=== PATIENT | male | born 1980 | race Caucasian/White ===

== ENCOUNTER → 2018-03-10 | Outpatient (CLI) | payer BC ==
--- NOTE | 2018-03-10 09:48 | US ---
EXAM DESCRIPTION: Liver: ULTRASOUND. CLINICAL HISTORY: ABN LIVER FUNCTION COMPARISON: None. TECHNIQUE: Transabdominal scannin-dimensional and Doppler modes. Note: Patient has large body habitus. FINDINGS: Gallbladder: normal size, shape, echogenicity; no intraluminal stones or sludge. No fluid around the gallbladder. No wall thickening. 2.4 mm. Non-tender with transducer pressure. Common bile duct: caliber 3.2 mm within normal limits. Liver: normal echogenicity; contour liver capsule smooth where seen. No fluid around the liver. Intrahepatic biliary ducts normal caliber. Doppler hepatopedal flow portal vein. xxx Long axis right lobe 18.3 cm. Pancreas: Pancreas mostly obscured by intestinal gas. Duct not seen. Right kidney: long axis measures 11.5 cm. Normal Echogenicity. Normal cortical thickness. No hydronephrosis. Abdominal aorta: Normal caliber from the proximal segment to the distal bifurcation. IMPRESSION: 1. Technically difficult study due to patient large body habitus. Hepatomegaly with fatty infiltration. Normal vascularity and ducts. Smooth capsule with no ascites. 2. Gallbladder and common bile duct negative. Pancreas mostly obscured by intestinal gas. Right kidney, abdominal aorta, and IVC are unremarkable. Electronically signed by: Albert Story MD 03/10/2018 9:47 AM ADMISSIONS CLERK
== END ==
LOC: US 08:27
PROVIDERS: ATTEND Family Medicine
DX: R94.5 Abnormal results of liver function studies (principal); R16.0 Hepatomegaly, not elsewhere classified

== ENCOUNTER → 2018-09-28 | Outpatient (CLI) | payer BC | LOC: GMAE 14:16 | PROVIDERS: ATTEND Family Medicine | DX: R53.82 Chronic fatigue, unspecified (principal) ==

== ENCOUNTER → 2019-05-23 | Outpatient (CLI) | payer BC | LOC: GMA 10:22 | PROVIDERS: ATTEND Family Medicine | DX: Z00.00 Encounter for general adult medical examination without abnormal findings (principal) ==

== ENCOUNTER → 2020-03-02 | Outpatient (CLI) | payer BC | LOC: GMALS 19:12 | PROVIDERS: ATTEND Nurse Practitioner Acute Care | DX: N39.0 Urinary tract infection, site not specified (principal) ==

== ENCOUNTER 2020-03-04 14:43 | Emergency (ER) | payer BC ==
[2020-03-04 14:56] VITALS: TEMP 97.2
--- NOTE | 2020-03-04 15:22 | ED.PDOC ---
History of Present Illness - General Chief Complaint: Diabetic Complaint Stated Complaint: high blood sugar Time Seen by Provider: 03/04/20 14:52 - History of Present Illness Initial Comments: PATIENT REPORTS THAT HE HAS HAD DIARRHEA FOR THE LAST 3 DAYS, HE HAD LAB DRAWN THIS MORNING THAT INDICATED HIS GLUCOSE WAS ELEVATED SO [facility] SENT HIM TO ER. HE HAS A HISTORY OF GLUCOSE INTOLERANCE IN THE PAST THAT RESPONDED TO DIET. HE HAS NOT HAD HIS GLUCOSE CHECKED IN A WHILE. HE DENIES RESPIRATORY SYMPTOMS BUT IS COMPLAINING OF POLYURIA AND POLYDYPSIA FOR THE LAST WEEK OR SO. Worsening Factors: nothing Review of Systems - Review of Systems Constitutional: States: no symptoms reported EENTM: States: no symptoms reported Respiratory: States: no symptoms reported Cardiology: States: no symptoms reported Gastrointestinal/Abdominal: States: see HPI Genitourinary: States: see HPI Musculoskeletal: States: no symptoms reported Skin: States: no symptoms reported Past Medical History (General) - Patient Medical History Hx Hypertension: Yes Surgical History: no surgical history - Activities of Daily Living Hospice Agency (if applicable):: None - Female History Patient is a Female of Child Bearing Age (10 -59 yrs old): No Family Medical History - Family History Mother Living Status: Still Living Physical Exam - Physical Exam General Appearance: Alert, Obese, Well Developed, Well Groomed, Well Hydrated, Well Nourished Eyes, Ears, Nose, Throat Exam: PERRL/EOMI, normal ENT inspection, TMs normal Neck: non-tender, full range of motion, supple, normal inspection Respiratory: chest non-tender, lungs clear, normal breath sounds, no respiratory distress Cardiovascular/Chest: normal peripheral pulses, regular rate, rhythm, no gallop Peripheral Pulses: No deficit Gastrointestinal/Abdominal: normal bowel sounds, non tender, soft, no organomegaly Extremity: normal range of motion, non-tender, normal inspection, no pedal edema 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 STATES "I DONT WANT THAT THING SHOVED UP MY NOSE." ALSO EXPLAINED TO HIM THAT A VIRAL INFECTION SUCH COVID COULD CAUSE A RISE IN HIS GLUCOSE. 03/04/20 16:02 Departure - Departure Clinical Impression: Type 2 diabetes mellitus Qualifiers: Diabetes mellitus petroleum terminal plant operator insulin use: without petroleum terminal plant operator use Diabetes mellitus complication status: without complication Qualified Code(s): E11.9 - Type 2 diabetes mellitus without complications Time of Disposition: 16:02 Disposition: Discharge to Home or Self Care Departure Forms: ED Discharge - Pt. Copy, Patient Portal Self Enrollment Instructions: DI for Diabetes Type 2, Type 2 Diabetes Referrals: PAULA WHITMAN MD [Primary Care Provider] - 1-2 Weeks Prescriptions: metFORMIN XR [Glucophage Xr] 500 mg PO DAILY #60 tab.[email or web address] Home Medications: Ambulatory Orders metFORMIN XR [Glucophage Xr] 500 mg PO DAILY #60 tab.[email or web address] 03/04/20 Additional Instructions: RECOMMEND THAT YOU GET A HOME GLUCOSE MONITOR AND LEARN TO TEST YOUR GLUCOSE. RECOMMEND THAT YOU CHECK IN TWICE DAILY, ONCE FASTING IN THE MORNING AND AND 2 HOURS AFTER EVENING MEAL. KEEP A LOG OF YOUR GLUCOSE READING. SEE YOUR DOCTOR WITH VIRTUAL VISIT IN 1 WEEK.
[2020-03-04] MEDS: SODIUM CHLORIDE 0.9% 1000ML 1,000 ML IVS ONE (15:26)
[2020-03-04] MEDS: INSULIN, REG.(HUMAN) 100 U/ML VIAL IV ONE (15:26)
[2020-03-04 16:28] VITALS: BP 147/82; O2SAT 98
== END 2020-03-04 16:25 | disposition home or self-care (01) ==
LOC: ER 14:43
DX: E11.9 Type 2 diabetes mellitus without complications (principal); R19.7 Diarrhea, unspecified; I10 Essential (primary) hypertension; Z79.84 Long term (current) use of oral hypoglycemic drugs

== ENCOUNTER → 2020-03-04 | Outpatient (CLI) | payer BC | LOC: LAB.O 11:51 | PROVIDERS: ATTEND Nurse Practitioner Acute Care | DX: A08.39 Other viral enteritis (principal); K57.30 Diverticulosis of large intestine without perforation or abscess without bleeding; K76.0 Fatty (change of) liver, not elsewhere classified; R16.2 Hepatomegaly with splenomegaly, not elsewhere classified; Q63.1 Lobulated, fused and horseshoe kidney; R73.09 Other abnormal glucose; R11.2 Nausea with vomiting, unspecified; R31.0 Gross hematuria ==

== ENCOUNTER → 2020-03-05 | Outpatient (CLI) | payer BC ==
--- NOTE | 2020-03-05 14:00 | CT ---
EXAM DESCRIPTION: Abdomen/Pelvis w/Contrast CLINICAL HISTORY: EPIGASTRIC PAIN COMPARISON: None. TECHNIQUE: Postcontrast CT images of the abdomen and pelvis are obtained using standard imaging protocol. Positive oral contrast is utilized. This exam was performed according to our departmental dose-optimization program, which includes automated exposure control, adjustment of the mA and/or kV according to patient size and/or use of iterative reconstruction technique . FINDINGS: Lower chest unremarkable. Liver is heterogeneous and decreased attenuation. Right lobe of the liver measures 22.1 cm. Spleen is enlarged measuring 19.4 x 17.3 cm. Pancreas and adrenal glands are unremarkable. Gallbladder is not well identified and may be surgically absent versus isointense to the liver. Abdominal vasculature is unremarkable. 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 No nephrolithiasis. No ureteral calcification or obstruction. Smaller 11 mm cortical cyst of the upper pole left kidney. Urinary bladder is contracted and not well evaluated. Prostate is unremarkable. The appendix is unremarkable. Stomach is contrast-filled and within normal limits. Air and fluid-filled dilated loops of mostly proximal to mid small bowel are seen. No transition level is seen. Mild to moderate scattered diverticuli of the colon primarily in the descending to sigmoid region. Moderate wall thickening and adjacent fat stranding involving the descending to sigmoid colon in the left lower quadrant over a length of 7 to 8 cm. No free intraperitoneal air or drainable fluid collection is seen. The inflammation of the colon contacts the urinary bladder with wall thickening in this region. No air attenuation in the urinary bladder is seen. Less than 1 cm iliac chain lymph nodes are seen on the left. Osseous structures show no aggressive bony lesions. Moderate to severe disc disease and facet arthropathy of the lumbar spine is seen. IMPRESSION: Colon diverticulosis with CT evidence of acute diverticulitis involving the junction of the descending to sigmoid colon in the left lower quadrant. Moderate to severe inflammation and phlegmon is seen around this region of the colon in the mesenteric fat without evidence of drainable fluid collection or free intraperitoneal air. Air and fluid-filled mildly dilated loops of proximal to mid small bowel are seen likely representing ileus related to inflammation from the diverticulitis. No transition point is seen to suggest mechanical small bowel obstruction. Hepatosplenomegaly is seen with diffuse fatty infiltration of the liver. Patient has a horseshoe kidney. Electronically signed by: Luis A Landrum MD 03/05/2020 1:59 PM BULLDOZER MECH[employer]IC
== END ==
LOC: CT 11:20
PROVIDERS: ATTEND Family Medicine
DX: K57.92 Diverticulitis of intestine, part unspecified, without perforation or abscess without bleeding (principal); R16.2 Hepatomegaly with splenomegaly, not elsewhere classified; K76.0 Fatty (change of) liver, not elsewhere classified; Q63.1 Lobulated, fused and horseshoe kidney; R73.09 Other abnormal glucose; R11.2 Nausea with vomiting, unspecified; R31.0 Gross hematuria